=== PATIENT | male | born 1960 | race American Indian/Alaskan Native ===

== ENCOUNTER 2019-04-28 11:50 | Emergency (ER) | payer MEDICARE ==
[2019-04-28] MEDS ORDERED: ZESTRIL PO ONE (13:56)
[2019-04-28] MEDS ORDERED: NORVASC PO ONE (13:56)
--- NOTE | 2019-04-28 13:57 | Emergency Department Report ---
ED General Adult HPI - General Chief complaint: High BP Stated complaint: HBP/NEED MEDICAL CLEAR Time Seen by Provider: 04/28/19 13:54 Source: patient Mode of arrival: Ambulatory Limitations: No Limitations - History of Present Illness Initial comments: Chief complaint: "I relapsed. I need my blood pressure medicine." HPI: Mr. Ash is a very pleasant 55-year-old male with history of hypertension and cocaine abuse who has not taking his blood pressure medicine for the past week. Due to drug relapse of cocaine use, he did not take his blood pressure medicine. He is currently is receiving drug treatment at the [facility]. He was referred to the emergency department for blood pressure control. He is currently symptom-free. He denies blurry vision, chest pain, paresthesias. Medications: Lisinopril 40 mg tablets, amlodipine 10 mg tablets. -: Gradual, week(s) (1) Severity scale (0 -10): 0 Consistency: constant Improves with: none Worsens with: none Associated Symptoms: denies other symptoms Treatments Prior to Arrival: none - Related Data Previous Rx's Medication Instructions Recorded Last Taken Type Lisinopril [Zestril TAB] 40 mg PO QDAY #30 tablet 04/28/19 Unknown Rx amLODIPine [Norvasc] 10 mg PO DAILY #30 tab 04/28/19 Unknown Rx Allergies Allergy/AdvReac Type Severity Reaction Status Date / Time No Known Allergies Allergy Unverified 04/28/19 11:56 ED Review of Systems ROS: Stated complaint: HBP/NEED MEDICAL CLEAR Other details as noted in HPI Comment: All other systems reviewed and negative Constitutional: denies: fever, malaise Respiratory: denies: shortness of breath Cardiovascular: denies: chest pain Gastrointestinal: denies: abdominal pain Neurological: denies: headache ED Past Medical Hx - Past Medical History Previous Medical History?: Yes Hx Hypertension: Yes Hx Arthritis: Yes - Surgical History Past Surgical History?: No - Social History Smoking Status: Current Every Day Smoker Substance Use Type: None - Medications Home Medications: Home Medications Medication Instructions Recorded Confirmed Last Taken Type Lisinopril [Zestril TAB] 40 mg PO QDAY #30 tablet 04/28/19 Unknown Rx amLODIPine [Norvasc] 10 mg PO DAILY #30 tab 04/28/19 Unknown Rx ED Physical Exam - General Limitations: No Limitations General appearance: alert, in no apparent distress - Head Head exam: Present: atraumatic, normocephalic - Eye Eye exam: Present: normal appearance - ENT ENT exam: Present: mucous membranes moist - Neck Neck exam: Present: normal inspection, full ROM - Respiratory Respiratory exam: Present: normal lung sounds bilaterally. Absent: respiratory distress, wheezes, rales, rhonchi - Cardiovascular Cardiovascular Exam: Present: regular rate, normal rhythm, normal heart sounds. Absent: systolic murmur, diastolic murmur, rubs, gallop - GI/Abdominal GI/Abdominal exam: Present: soft, normal bowel sounds. Absent: distended, tenderness, guarding, rebound - Rectal Rectal exam: Present: deferred - Extremities Exam Extremities exam: Present: normal inspection - Back Exam Back exam: Present: normal inspection - Neurological Exam Neurological exam: Present: alert, oriented X3, normal gait - Psychiatric Psychiatric exam: Present: normal affect, normal mood - Skin Skin exam: Present: warm, dry, intact, normal color. Absent: rash ED Course Vital Signs 04/28/19 12:17 Temperature 98.2 F Pulse Rate 60 Respiratory 18 Rate Blood Pressure 170/109 O2 Sat by Pulse 98 Oximetry ED Medical Decision Making - Medical Decision Making Mr. Martinez presents with asymptomatic hypertensive urgency. Prescribed lisinopril amlodipine. Doses of these medications provided in the emergency department. Critical care attestation.: If time is entered above; I have spent that time in minutes in the direct care of this critically ill patient, excluding procedure time. ED Disposition Clinical Impression: Asymptomatic hypertensive urgency Disposition: DC-01 TO HOME OR SELFCARE Is pt being admited?: No Does the pt Need Aspirin: No Condition: Stable Instructions: Hypertension (ED) Prescriptions: amLODIPine [Norvasc] 10 mg PO DAILY #30 tab Lisinopril [Zestril TAB] 40 mg PO QDAY #30 tablet Referrals: PRIMARY CARE, [Referring] - 7-10 days
[2019-04-28 14:48] VITALS: BP 182/97
== END 2019-04-28 14:46 | disposition home or self-care (01) ==
LOC: EDSEX → ED 11:50
DX: I16.0 Hypertensive urgency (principal); I10 Essential (primary) hypertension; F17.200 Nicotine dependence, unspecified, uncomplicated; M19.90 Unspecified osteoarthritis, unspecified site; F14.10 Cocaine abuse, uncomplicated; Z79.899 Other long term (current) drug therapy
CPT/HCPCS: 99282

== ENCOUNTER 2019-06-16 15:33 | Emergency (ER) | payer MEDICARE ==
--- NOTE | 2019-06-16 16:26 | Event Note ---
ED Screening Note Date of service: 06/16/19 ED Screening Note: This initial assessment/diagnostic orders/clinical plan/treatment(s) is/are subject to change based on patients health status, clinical progression and re- assessment by fellow clinical providers in the ED. Further treatment and workup at subsequent clinical providers discretion. Patient/guardian urged not to elope from the ED as their condition may be serious if not clinically assessed and managed. Initial orders include: 59yo BM states that he does cocaine and alcohol. He states is unaware of where he is, how he got here and he hears voices that tell him to hurt others.
[2019-06-16 16:53] LABS: Bilirubin,Urine NEG (Negative); Blood,Urine MOD (Negative); Color,Urine Yellow (Yellow); Protein,Urine <15 mg/dL mg/dL (Negative); Urobilinogen,Urine < 2.0 mg/dL (<2.0)
[2019-06-16 17:04] LABS: Amphetamine Screen,Urine PRESUMPTIVE NEGATIVE; Benzodiazepines Screen,Urine PRESUMPTIVE NEGATIVE; Methadone Screen,Urine PRESUMPTIVE NEGATIVE; Opiate Screen,Urine PRESUMPTIVE NEGATIVE
[2019-06-16 17:13] LABS: Basophils # (Auto) 0.1 K/mm3 (0.0-0.1); Basophils % (Auto) 0.6 % (0.0-1.8); Eosinophils % (Auto) 0.2 % (0.0-4.3); Hematocrit 43.9 % (35.5-45.6); Hemoglobin 14.5 gm/dl (11.8-15.2); Lymphocytes # (Auto) 2.6 K/mm3 (1.2-5.4); Lymphocytes % (Auto) 22.4 % (13.4-35.0); Mean Corpuscular HGB Conc 33 % (32-34); Mean Corpuscular Volume 88 fl (84-94); Monocytes # (Auto) 0.9 K/mm3 (0.0-0.8); Monocytes % (Auto) 7.7 % (0.0-7.3); Platelet Count 260 K/mm3 (140-440); Red Blood Count 5.01 M/mm3 (3.65-5.03); Red Cell Distribution Width 13.9 % (13.2-15.2)
[2019-06-16 17:17] LABS: Cannabinoid Screen,Urine PRESUMPTIVE POSITIVE; Cocaine Screen,Urine PRESUMPTIVE POSITIVE
[2019-06-16 17:28] LABS: BUN/Creatinine Ratio 16; Blood Urea Nitrogen 14 mg/dL (9-20); Calcium 9.8 mg/dL (8.4-10.2); Hemolysis Index 10
--- NOTE | 2019-06-16 20:52 | Emergency Department Report ---
<CARLEEN WARREN - Last Filed: 06/17/19 03:59> ED General Adult HPI - General Chief complaint: Medical Clearance Stated complaint: SUBSTANCE ABUSE Time Seen by Provider: 06/16/19 20:05 Source: patient Mode of arrival: Wheelchair Limitations: No Limitations - History of Present Illness Initial comments: Patient is a poor historian. When asked why patient presents to the emergency room he states "I dont know". He states that he came by ambulance. He states he does not know who called the ambulance. He states that he has been at [facility] for one day for drug and alcohol abuse. He states he has suicidal ideations but does not have a plan. When asked if he has homicidal ideations he states "I'm not sure." He states that he is having visual hallucinations and feels like things are "crawling on him." He states that he is having auditory hallucinations and the voices are telling him to "harm himself." He has a past medical history of hypertension. He denies any allergies medications. He states he is a daily smoker half a pack per day. He states he is a daily drinker. He endorses cocaine, marijuana, Xanax use. Severity scale (0 -10): 0 - Related Data Previous Rx's Medication Instructions Recorded Last Taken Type Lisinopril [Zestril TAB] 40 mg PO QDAY #30 tablet 04/28/19 Unknown Rx amLODIPine 10 mg PO DAILY #30 tab 04/28/19 Unknown Rx Allergies Allergy/AdvReac Type Severity Reaction Status Date / Time No Known Allergies Allergy Verified 06/17/19 10:20 ED Past Medical Hx - Past Medical History Previous Medical History?: Yes Hx Hypertension: Yes Hx Arthritis: Yes - Surgical History Past Surgical History?: No - Social History Smoking Status: Current Every Day Smoker Substance Use Type: Alcohol, Cocaine - Medications Home Medications: Home Medications Medication Instructions Recorded Confirmed Last Taken Type Lisinopril [Zestril TAB] 40 mg PO QDAY #30 tablet 04/28/19 06/17/19 Unknown Rx amLODIPine 10 mg PO DAILY #30 tab 04/28/19 06/17/19 Unknown Rx ED Physical Exam - General Limitations: No Limitations General appearance: alert, in no apparent distress - Head Head exam: Present: atraumatic, normocephalic - Eye Eye exam: Present: normal appearance - ENT ENT exam: Present: mucous membranes moist - Respiratory Respiratory exam: Present: normal lung sounds bilaterally. Absent: respiratory distress, wheezes, rales, rhonchi, stridor, chest wall tenderness, accessory muscle use, decreased breath sounds, prolonged expiratory - Cardiovascular Cardiovascular Exam: Present: regular rate, normal rhythm, normal heart sounds. Absent: systolic murmur, diastolic murmur, rubs, gallop - Neurological Exam Neurological exam: Present: alert, other (pt is able to state his name, the month and day of his , and is able to say this is a hospital but the name of the hospital) - Psychiatric Psychiatric exam: Present: suicidal ideation - Skin Skin exam: Present: warm, dry, intact ED Medical Decision Making - Lab Data Result diagrams: 06/16/19 16:53 06/16/19 16:53 Labs 06/16/19 06/16/19 06/16/19 16:39 16:39 16:53 WBC RBC Hgb Hct MCV MCH MCHC RDW Plt Count Lymph % (Auto) [place] % (Auto) Eos % (Auto) Baso % (Auto) Lymph # [place] # Eos # Baso # Seg Neutrophils % Seg Neutrophils # Sodium Potassium Chloride Carbon Dioxide Anion Gap BUN Creatinine Estimated GFR BUN/Creatinine Ratio Glucose Calcium Total Bilirubin Direct Bilirubin Indirect Bilirubin AST ALT Alkaline Phosphatase Total Creatine Kinase Total Protein Albumin Albumin/Globulin Ratio Urine Color Yellow Urine Turbidity Clear Urine pH 6.0 Ur Specific [place] 1.010 Urine Protein <15 mg/dl Urine Glucose (UA) Neg Urine Ketones Tr Urine Blood Mod Urine Nitrite Neg Urine Bilirubin Neg Urine Urobilinogen < 2.0 Ur Leukocyte Esterase Neg Urine WBC (Auto) 2.0 Urine RBC (Auto) 3.0 Salicylates < 0.3 L Urine Opiates Screen Presumptive negative Urine Methadone Screen Presumptive negative Acetaminophen Ur Barbiturates Screen Presumptive negative Ur Phencyclidine Scrn Presumptive negative Ur Amphetamines Screen Presumptive negative U Benzodiazepines Scrn Presumptive negative Urine Cocaine Screen Presumptive positive U Marijuana (THC) Screen Presumptive positive Drugs of Abuse Note Disclamer Plasma/Serum Alcohol 06/16/19 06/16/19 06/16/19 16:53 16:53 16:53 WBC RBC Hgb Hct MCV MCH MCHC RDW Plt Count Lymph % (Auto) [place] % (Auto) Eos % (Auto) Baso % (Auto) Lymph # [place] # Eos # Baso # Seg Neutrophils % Seg Neutrophils # Sodium 137 Potassium 3.9 Chloride 98.7 Carbon Dioxide 22 Anion Gap 20 BUN 14 Creatinine 0.9 Estimated GFR > 60 BUN/Creatinine Ratio 16 Glucose 98 Calcium 9.8 Total Bilirubin Direct Bilirubin Indirect Bilirubin AST ALT Alkaline Phosphatase Total Creatine Kinase Total Protein Albumin Albumin/Globulin Ratio Urine Color Urine Turbidity Urine pH Ur Specific [place] Urine Protein Urine Glucose (UA) Urine Ketones Urine Blood Urine Nitrite Urine Bilirubin Urine Urobilinogen Ur Leukocyte Esterase Urine WBC (Auto) Urine RBC (Auto) Salicylates Urine Opiates Screen Urine Methadone Screen Acetaminophen < 5.0 L Ur Barbiturates Screen Ur Phencyclidine Scrn Ur Amphetamines Screen U Benzodiazepines Scrn Urine Cocaine Screen U Marijuana (THC) Screen Drugs of Abuse Note Plasma/Serum Alcohol < 0.01 06/16/19 06/16/19 06/16/19 16:53 16:53 Unknown WBC 11.6 H RBC 5.01 Hgb 14.5 Hct 43.9 MCV 88 MCH 29 MCHC 33 RDW 13.9 Plt Count 260 Lymph % (Auto) 22.4 [place] % (Auto) 7.7 H Eos % (Auto) 0.2 Baso % (Auto) 0.6 Lymph # 2.6 [place] # 0.9 H Eos # 0.0 Baso # 0.1 Seg Neutrophils % 69.1 Seg Neutrophils # 8.0 H Sodium Potassium Chloride Carbon Dioxide Anion Gap BUN Creatinine Estimated GFR BUN/Creatinine Ratio Glucose Calcium Total Bilirubin 0.50 Direct Bilirubin < 0.2 Indirect Bilirubin 0.3 AST 63 H ALT 28 Alkaline Phosphatase 88 Total Creatine Kinase 2729 H Total Protein 8.2 Albumin 4.5 Albumin/Globulin Ratio 1.2 Urine Color Urine Turbidity Urine pH Ur Specific [place] Urine Protein Urine Glucose (UA) Urine Ketones Urine Blood Urine Nitrite Urine Bilirubin Urine Urobilinogen Ur Leukocyte Esterase Urine WBC (Auto) Urine RBC (Auto) Salicylates Urine Opiates Screen Urine Methadone Screen Acetaminophen Ur Barbiturates Screen Ur Phencyclidine Scrn Ur Amphetamines Screen U Benzodiazepines Scrn Urine Cocaine Screen U Marijuana (THC) Screen Drugs of Abuse Note Plasma/Serum Alcohol - Radiology Data Radiology results: report reviewed CT head/brain wo con INDICATION: Altered mental status. TECHNIQUE: Routine CT head without contrast. All CT scans at this location are performed using CT dose reduction for ALARA by means of automated exposure control. COMPARISON: None. FINDINGS: BRAIN / INTRACRANIAL CONTENTS: No acute hemorrhage, mass effect, midline shift, or hydrocephalus. No appreciable acute large territorial or lacunar infarct. No chronic infarct or focal atrophy. Normal brain volume and ventricular/sulcal size for age. ORBITS: No significant abnormality of visualized orbits. SINUSES / MASTOIDS: No significant abnormality of visualized sinuses and mastoid air cells. ADDITIONAL FINDINGS: None. IMPRESSION: 1. No acute intracranial abnormality. Signer Name: Danilo Talamantes MD Signed: 06/16/2019 9:59 PM Workstation Name: [id number] - Medical Decision Making Patient is a poor historian. When asked why patient presents to the emergency room he states "I dont know". He states that he came by ambulance. He states he does not know who called the ambulance. He states that he has been at [facility] for one day for drug and alcohol abuse. He states he has suicidal ideations but does not have a plan. When asked if he has homicidal ideations he states "I'm not sure." He states that he is having visual hallucinations and feels like things are "crawling on him." He states that he is having auditory hallucinations and the voices are telling him to "harm himself." He has a past medical history of hypertension. He denies any allergies medications. He states he is a daily smoker half a pack per day. He states he is a daily d cherrie. He endorses cocaine, marijuana, Xanax use. vitals are stable. labs significant for elevated CK and mildly elevated AST. pt given 2L of NS. UA with no proteinuria. kidney function is normal. no clinical signs of rhabdomyolysis. UDS is positive for marijuana and cocaine. CT head 1. No acute intracranial abnormality. Patient please on 1013 due to suicidal ideations and hallucinations Stat mental health consult placed ED hold orders placed At this time patient does not have a medical emergency preventing mental health evaluation and/or transfer to a psychiatric facility as deemed appropriate by mental health personnel ED Disposition Clinical Impression: Suicidal ideation, Substance abuse Disposition: DC/TX-65 PSY HOSP/PSY UNIT Condition: Stable Instructions: Polysubstance Abuse (ED), Suicide Prevention for Adults (ED) Referrals: PRIMARY CAREMD [Primary Care Provider] - 3-5 Days <MAGDY BERMEO - Last Filed: 06/19/19 12:45> ED General Adult HPI - History of Present Illness Initial comments: Patient has been evaluated by nurse practitioner for mental health. Practitioner recommends that patient can be discharged to [facility]. It appears from review of chart the patient had come from a [facility]. ED Review of Systems ROS: Stated complaint: SUBSTANCE ABUSE Other details as noted in HPI ED Course Vital Signs 06/16/19 06/16/19 06/17/19 16:23 20:07 02:00 Temperature 98.8 F 98.2 F 98.4 F Pulse Rate 92 H 83 67 Respiratory 18 16 16 Rate Blood Pressure 140/91 Blood Pressure 134/68 143/95 [Left] O2 Sat by Pulse 98 94 97 Oximetry 06/17/19 06/17/19 06/17/19 08:36 15:22 20:15 Temperature 98.8 F 98.6 F Pulse Rate 66 74 Respiratory 16 18 18 Rate Blood Pressure Blood Pressure 129/81 136/89 [Left] O2 Sat by Pulse 95 96 Oximetry 06/17/19 06/18/19 06/18/19 20:32 02:16 08:29 Temperature 99.0 F 98.4 F Pulse Rate 75 72 63 Respiratory 18 18 20 Rate Blood Pressure Blood Pressure 151/90 134/74 163/91 [Left] O2 Sat by Pulse 98 97 97 Oximetry 06/18/19 06/18/19 06/19/19 13:25 18:34 01:30 Temperature 98.7 F 98.6 F Pulse Rate 65 65 Respiratory 20 18 Rate Blood Pressure 172/92 Blood Pressure 172/92 141/90 [Left] O2 Sat by Pulse 96 97 Oximetry 06/19/19 06/19/19 07:00 11:00 Temperature 98.5 F Pulse Rate 60 60 Respiratory 18 Rate Blood Pressure 150/98 Blood Pressure 150/98 [Left] O2 Sat by Pulse 99 Oximetry ED Medical Decision Making - Lab Data Result diagrams: 06/16/19 16:53 06/16/19 16:53 Critical care attestation.: If time is entered above; I have spent that time in minutes in the direct care of this critically ill patient, excluding procedure time. ED Disposition Is pt being admited?: No Does the pt Need Aspirin: No
[2019-06-16 21:06] LABS: Alanine Aminotransferase 28 units/L (7-56); Albumin 4.5 g/dL (3.9-5)
[2019-06-16 21:14] LABS: Bilirubin,Direct < 0.2 mg/dL (0-0.2)
[2019-06-16] MEDS ORDERED: SODIUM CHLORIDE 0.9% 1000 ML 1,000 ML IV ONE ×2 (21:22)
--- NOTE | 2019-06-16 22:04 | Cat Scan Report ---
CT head/brain wo con INDICATION: Altered mental status. TECHNIQUE: Routine CT head without contrast. All CT scans at this location are performed using CT dos e reduction for ALARA by means of automated exposure control. COMPARISON: None. FINDINGS: BRAIN / INTRACRANIAL CONTENTS: No acute hemorrhage, mass effect, midline shift, or hydrocephalus. No appreciable acute large territorial or lacunar infarct. No chronic infarct or focal atrophy. Normal b rain volume and ventricular/sulcal size for age. ORBITS: No significant abnormality of visualized orbits. SINUSES / MASTOIDS: No significant abnormality of visualized sinuses and mastoid air cells. ADDITIONAL FINDINGS: None. IMPRESSION: 1. No acute intracranial abnormality. Signer Name: Danilo Talamantes MD Signed: 06/16/2019 9:59 PM Workstation Name: [id number]
--- NOTE | 2019-06-17 10:04 | Consultation ---
History of Present Illness - Reason for Consult Consult date: 06/17/19 Reason for consult: Mental Health Evaluation Requesting physician: CARLEEN WARREN - Chief Complaint Chief complaint: "I don't know if I want to kill myself" - History of Present Psychiatric Illness 59 y.o. AA male who presented to the ER for SI's and substance abuse. Today the patient was calm during the assessment. He stated that he was a client at [facility], but relapsed on "drugs" and came to the ER. He stated that he is tired of using "drugs" and don't know what to do with himself. He stated that he did endorse SI's yesterday, but would not confirm or deny SI's currently. He stated that he feel "useless/hopeless" about his substance abuse. He denies any prior suicide attempts when asked. He is adamant that he has no direction with his life. He denies HI's and AVH's. He denies erratic sleep and a poor appetite. He acknowledged alcohol consumption (etoh) socially. He stated that his recreational drug use has increased. Medications and Allergies Allergies Allergy/AdvReac Type Severity Reaction Status Date / Time No Known Allergies Allergy Verified 06/17/19 10:20 Home Medications Medication Instructions Recorded Confirmed Last Taken Type Lisinopril [Zestril TAB] 40 mg PO QDAY #30 tablet 04/28/19 06/17/19 Unknown Rx amLODIPine 10 mg PO DAILY #30 tab 04/28/19 06/17/19 Unknown Rx Past psychiatric history - Past Medical History Past Medical History: No medical history Past Surgical History: No surgical history - past Psychiatric treatment and history psychiatric treatment history: Hx of substance abuse. Denies a fam psy hx. - Social History Social history: other (Homeless) Mental Status Exam - Vital signs Last Vital Signs Temp 98.4 F 06/17/19 02:00 Pulse 67 06/17/19 02:00 Resp 16 06/17/19 02:00 BP 143/95 06/17/19 02:00 Pulse Ox 97 06/17/19 02:00 - Exam Narrative exam: MSE: Appearance: in hospital attire Behavior: poor eye contact Speech: regular rate and tone Mood: "down" Affect: flat Thought Process: circumstantial Thought Content: denies HI's and AVH's Motor Activity: lying in bed Cognition: A/O x3 Insight: variable Judgment: poor Results Result Diagrams: 06/16/19 16:53 06/16/19 16:53 Abnormal lab results 06/16/19 06/16/19 06/16/19 Range/Units 16:53 16:53 16:53 WBC 11.6 H (4.5-11.0) K/mm3 [place] % (Auto) 7.7 H (0.0-7.3) % [place] # 0.9 H (0.0-0.8) K/mm3 Seg Neutrophils # 8.0 H (1.8-7.7) K/mm3 AST (5-40) units/L Total Creatine Kinase (55-170) units/L Salicylates < 0.3 L (2.8-20.0) mg/dL Acetaminophen < 5.0 L (10.0-30.0) ug/mL 06/16/19 06/16/19 Range/Units 16:53 Unknown WBC (4.5-11.0) K/mm3 [place] % (Auto) (0.0-7.3) % [place] # (0.0-0.8) K/mm3 Seg Neutrophils # (1.8-7.7) K/mm3 AST 63 H (5-40) units/L Total Creatine Kinase 2729 H (55-170) units/L Salicylates (2.8-20.0) mg/dL Acetaminophen (10.0-30.0) ug/mL All other labs normal. Assessment and Plan Assessment and plan: Impression: MDD. Substance Use DO (cocaine). Cannabis Use DO. Today the patient was calm during the assessment. CK 2729. DDx: Substancel Induced Mood DO Recommendation/Plan: Continue 1013 and start Zoloft 50 mg PO daily for depression. Discussed possible sucidality/medication induced adam with the deuce ent reference [place], he verbalized understanding. Dispo: The patient will be referred to inpatient psy services. Staffed with Dr Ava Escobedo.
[2019-06-17] MEDS: SERTRALINE 50 MG TAB PO SCH (13:42)
--- NOTE | 2019-06-18 09:39 | Progress Note ---
Subjective - Reason for Consult Consult date: 06/18/19 Reason for consult: Psychiatry Follow-up - Chief Complaint Chief complaint: "I have to make better decisions" 59 y.o. AA male who presented to the ER for SI's and substance abuse. Today the patient was calm during the assessment. He stated that he need all the help he can get from the mental health facility. He stated he must do better with his decision making reference his life. He denies SI/HI's and AVH's. No indication of side effects from his medication. Mental Status Exam - Vital signs Last Vital Signs Temp 99.0 F 06/18/19 02:16 Pulse 72 06/18/19 02:16 Resp 18 06/18/19 02:16 BP 134/74 06/18/19 02:16 Pulse Ox 97 06/18/19 02:16 - Exam Narrative exam: MSE: Appearance: in hospital attire Behavior: regular eye contact Speech: regular rate and tone Mood: "okay" Affect: flat Thought Process: circumstantial Thought Content: denies HI's and AVH's Motor Activity: lying in bed Cognition: A/O x3 Insight: variable Judgment: variable Assessment and Plan Impression: MDD. Substance Use DO (cocaine). Cannabis Use DO. Today the patient was calm during the assessment. CK 1337, trending down. DDx: Substancel Induced Mood DO Recommendation/Plan: Continue 1013 and Zoloft 50 mg PO daily for depression. Discussed possible sucidality/medication induced adam with the patient reference [place], he verbalized understanding. Dispo: The patient was accepted at [facility] for inpatient psy services. Will staff with Dr Ava Escobedo.
[2019-06-18] MEDS: SERTRALINE 50 MG TAB PO SCH (11:07)
[2019-06-18] MEDS ORDERED: amLODIPine 10 MG TAB ONE (18:21)
[2019-06-18] MEDS ORDERED: LISINOPRIL 20 MG TAB ONE (18:21)
[2019-06-18] MEDS ORDERED: LISINOPRIL 20 MG TAB PO ONE (18:32)
[2019-06-18] MEDS ORDERED: amLODIPine 5 MG TAB PO ONE (18:33)
--- NOTE | 2019-06-19 08:27 | Progress Note ---
Subjective - Reason for Consult Consult date: 06/19/19 Reason for consult: Psychiatry Follow-up - Chief Complaint Chief complaint: "Hello" 59 y.o. AA male who presented to the ER for SI's and substance abuse. Today the patient was calm and cooperative during the assessment. He stated that he have done lots of reflection about his life. He is adamant that he isn't suicidal at this time and look forward to rehab/psy services once discharged. He denies S I/HI's and AVH's. He denies any side effects from his medication. Mental Status Exam - Vital signs Last Vital Signs Temp 98.6 F 06/19/19 01:30 Pulse 65 06/19/19 01:30 Resp 18 06/19/19 01:30 BP 141/90 06/19/19 01:30 Pulse Ox 97 06/19/19 01:30 - Exam Narrative exam: MSE: Appearance: calm, cooperative Behavior: regular eye contact Speech: regular rate and tone Mood: "better" Affect: congruent to mood Thought Process: linear Thought Content: denies SI/HI's and AVH's Motor Activity: lying in bed Cognition: A/O x3 Insight: fair Judgment: fair Assessment and Plan Impression: MDD. Substance Use DO (cocaine). Cannabis Use DO. Today the patient was calm during the assessment. CK 1337, trending down. DDx: Substancel Induced Mood DO Recommendation/Plan: Rescind 1013. Continue Zoloft 50 mg PO daily for depression. Discussed possible sucidality/medication induced adam with the patient reference [place], he verbalized understanding. Dispo: The patient will be referred to [facility] (voluntary). Will staff with Dr Ava Escobedo.
[2019-06-19 08:32] VITALS: BP 150/98
[2019-06-19] MEDS ORDERED: LISINOPRIL 20 MG TAB PO ONE (10:00)
[2019-06-19] MEDS ORDERED: amLODIPine 10 MG TAB PO ONE (10:00)
[2019-06-19] MEDS: SERTRALINE 50 MG TAB PO SCH (11:00)
== END 2019-06-19 13:35 ==
LOC: EEVIPCON 15:33 → ED 15:33
DX: F32.9 Major depressive disorder, single episode, unspecified (principal); I10 Essential (primary) hypertension; M19.90 Unspecified osteoarthritis, unspecified site; F17.200 Nicotine dependence, unspecified, uncomplicated; F14.10 Cocaine abuse, uncomplicated; F12.10 Cannabis abuse, uncomplicated
CPT/HCPCS: 36415; 70450; 80048; 80076; 80307; 81001; 82550; 85025; 99285; J7030; 80320; G0480

== ENCOUNTER 2020-08-12 09:37 | Emergency (ER) | payer MEDICARE ==
[2020-08-12 10:14] VITALS: BP 150/93
--- NOTE | 2020-08-12 10:15 | Emergency Department Report ---
Chief Complaint: Medical Clearance Stated Complaint: REQUESTING A RX FOR CPAP MACHINE Time Seen by Provider: 08/12/20 09:46 - HPI History of Present Illness: This is a 61-year-old male nontoxic, well nourished in appearance, no acute signs of distress presents to the ED for a note to his insurance company that he lost his CPAP machine. Patient otherwise denies any symptoms. Denies any complaints. Denies any chest pain, shortness of breath, fever, chills, nausea, vomiting, headache or stiff neck. Patient denies any allergies. - Exam Vital Signs: Vital Signs 08/12/20 09:43 Temperature 97.6 F Pulse Rate 73 Respiratory 20 Rate Blood Pressure 150/93 O2 Sat by Pulse 97 Oximetry Physical Exam: My physical exam GENERAL: The patient is a well-developed, well-nourished in no apparent distress. Patient is alert and acting appropriately for age. Alert and oriented 3, no apparent distress, normal gait, atraumatic. LUNGS: Respiratory rate within normal limits. HEART: Regular rate within normal limits. PSYCHIATRIC: Normal affect with no suicidal or homicidal ideations. MSE screening note: Focused history and physical exam performed. Due to findings the following was ordered: ED Medical Decision Making - Medical Decision Making Patient was given referrals to see a primary care doctor that will be able to assist him with a CPAP. Vital signs are stable. At time of discharge, the patient does not seem toxic or ill in appearance. No acute signs of distress noted. Patient agrees to discharge treatment plan of care. No further questions noted by the patient. ED Disposition for MSE Clinical Impression: Referral needed Disposition: MED SCREENING EXAM-LEFT Is pt being admited?: No Does the pt Need Aspirin: No Condition: Stable Additional Instructions: Follow-up with the medical referrals that you were provided to the emergency room today or if symptoms worsen and continue return to emergency room as soon as possible. Referrals: VALDEZ GRESHAM MD [Primary Care Provider] - 3-5 Days JOHANNA GARCIA MD [Staff Physician] - 3-5 Days Time of Disposition: 10:15
== END 2020-08-12 10:28 | disposition left against medical advice (07) ==
LOC: ED 09:37
DX: Z53.21 Procedure and treatment not carried out due to patient leaving prior to being seen by health care provider (principal)

== ENCOUNTER 2021-09-13 04:28 | Emergency (ER) | payer MEDICARE ==
[2021-09-13] MEDS ORDERED: LORazepam 2 MG/ML VIAL IM PRN (05:24)
[2021-09-13] MEDS ORDERED: HALOPERIDOL LACTATE 5 MG/1 ML INJ IM PRN (05:24)
--- NOTE | 2021-09-13 05:25 | Emergency Department Report ---
ED General Adult HPI - General Chief complaint: Psych Stated complaint: I am drunk and I want to kill myself PUI?: No Time Seen by Provider: 09/13/21 05:23 Source: patient, RN notes reviewed, old records reviewed Mode of arrival: Ambulatory Limitations: Other (Alcohol intoxication) - History of Present Illness Initial comments: The patient was evaluated in the emergency department for symptoms described in the history of present illness. He/she was evaluated in the context of the global COVID-19 pandemic, which necessitated consideration that the patient might be at risk for infection with the virus that causes COVID-19. Institutional protocols and algorithms that pertain to the evaluation of patients at risk for COVID-19 are in a state of rapid change based on information released by regulatory bodies including the CDC and federal and state organizations. These policies and algorithms were followed during the pat ient's care in the emergency department. Please note that these policies, procedures and recommendations changed on a rapid basis. The patient is a 61-year-old gentleman with a history of alcoholism, hypertension, and polysubstance abuse, who presents to the ER today with a complaint of homicidality suicidality hallucinations and intoxication. He denies physical pain. He denies shortness of breath. He denies urinary symptoms. He denies overdose. He denies access to guns or firearms. He reports that he took the bus here. -: Gradual Severity scale (0 -10): 2 Consistency: constant Improves with: none Worsens with: none - Related Data Previous Rx's Medication Instructions Recorded Last Taken Type amLODIPine 10 mg PO DAILY #30 tab 04/28/19 Unknown Rx lisinopriL [Zestril TAB] 40 mg PO QDAY #30 tablet 04/28/19 Unknown Rx Allergies Allergy/AdvReac Type Severity Reaction Status Date / Time No Known Allergies Allergy Verified 06/17/19 10:20 ED Review of Systems ROS: Stated complaint: MENTAL HEALTH CONCERNS/SOB Other details as noted in HPI Constitutional: denies: fever Eyes: denies: eye discharge ENT: denies: epistaxis Respiratory: denies: cough Cardiovascular: denies: chest pain Gastrointestinal: denies: abdominal pain Genitourinary: denies: dysuria Neurological: denies: weakness Psychiatric: depression, auditory hallucinations, suicidal thoughts ED Past Medical Hx - Past Medical History Hx Hypertension: Yes Hx Arthritis: Yes Hx Psychiatric Treatment: Yes (Depression) - Surgical History Past Surgical History?: No - Social History Smoking Status: Current Every Day Smoker Substance Use Type: Alcohol, Cocaine - Medications Home Medications: Home Medications Medication Instructions Recorded Confirmed Last Taken Type amLODIPine 10 mg PO DAILY #30 tab 04/28/19 06/17/19 Unknown Rx lisinopriL [Zestril TAB] 40 mg PO QDAY #30 tablet 04/28/19 06/17/19 Unknown Rx ED Physical Exam - General Limitations: Other (Intoxication) General appearance: appears intoxicated - Head Head exam: Present: atraumatic, normocephalic - Eye Eye exam: Present: normal appearance, EOMI. Absent: nystagmus - ENT ENT exam: Present: normal exam, normal orophraynx, mucous membranes moist, normal external ear exam - Neck Neck exam: Present: normal inspection, full ROM. Absent: tenderness, mening ismus - Respiratory Respiratory exam: Present: normal lung sounds bilaterally. Absent: respiratory distress, wheezes, rales, rhonchi, stridor, decreased breath sounds - Cardiovascular Cardiovascular Exam: Present: regular rate, normal rhythm, normal heart sounds. Absent: bradycardia, tachycardia, irregular rhythm, systolic murmur, diastolic murmur, rubs, gallop - GI/Abdominal GI/Abdominal exam: Present: soft. Absent: distended, tenderness, guarding, rebound, rigid, pulsatile mass - Rectal Rectal exam: Present: deferred - Extremities Exam Extremities exam: Present: normal inspection, full ROM, other (2+ pulses noted in the bilateral upper and lower extremities. There is no palpable cord. neg ative Homans sign. Muscular compartments are soft. The pelvis is stable.). Absent: pedal edema, calf tenderness - Back Exam Back exam: Present: normal inspection, full ROM. Absent: tenderness, CVA tenderness (R), CVA tenderness (L), paraspinal tenderness, vertebral tenderness - Neurological Exam Neurological exam: Present: alert, normal gait, other (No facial droop. Tongue midline. Extraocular movements intact bilaterally. Facial sensation intact to light touch in V1, V2, V3 distribution bilaterally. 5 and a 5 strength in 4 extremities. Sensation intact to light touch in 4 extremities.). Absent: motor sensory deficit - Psychiatric Psychiatric exam: Present: depressed, flat affect, suicidal ideation - Skin Skin exam: Present: warm, dry, intact, normal color. Absent: rash ED Course Vital Signs 09/13/21 04:41 Temperature 98.4 F Pulse Rate 85 Respiratory 17 Rate Blood Pressure 125/84 [Right] O2 Sat by Pulse 97 Oximetry - Reevaluation(s) Reevaluation #1: 09/13/21 05:50 Differential diagnosis, including not limited to: Substance induced mood disorder, alcohol intoxication, medical screening examination for psychiatric placement, behavioral health screening Assessment and plan: 61-year-old gentleman who was intoxicated clinically, with a complaint of suicidality hallucinations and homicidality. He is cooperative. He is not belligerent. He is placed on a 2013. Appropriate medications ordered. Holding orders initiated. Screening laboratory studies requested. Have requested psychiatric consultation and evaluation. We anticipate that this patient will likely would be cleared by the psychiatry team once he becomes clinically sober. Reassess after laboratory studies have resulted. 09/13/21 06:36 Laboratory studies reviewed and appreciated. They are unremarkable with the exception of elevated CK. This is less than 5000, his muscular compartments are soft, and renal function is acceptable/within normal limits at this time. IV fluids ordered. Elevated CK will also decrease on its own with rest and oral hydration. At this point in time, the patient does not appear to have an immediate medical contraindication to psychiatric admission, evaluation, consultation and placement. Urinalysis and urine drug screen pending, as well as Covid test. The emergency room will follow along as he provides the samples. ED Medical Decision Making - Lab Data Result diagrams: 09/13/21 05:17 09/13/21 05:17 Vital Signs 09/13/21 04:41 Temperature 98.4 F Pulse Rate 85 Respiratory 17 Rate Blood Pressure 125/84 [Right] O2 Sat by Pulse 97 Oximetry Lab Results 09/13/21 Range/Units 05:17 WBC 5.7 (4.5-11.0) K/mm3 RBC 4.71 (3.65-5.03) M/mm3 Hgb 13.5 (11.8-15.2) gm/dl Hct 40.6 (35.5-45.6) % MCV 86 (84-94) fl MCH 29 (28-32) pg MCHC 33 (32-34) % RDW 13.9 (13.2-15.2) % Plt Count 266 (140-440) K/mm3 Lymph % (Auto) 28.6 (13.4-35.0) % [place] % (Auto) 8.6 H (0.0-7.3) % Eos % (Auto) 0.6 (0.0-4.3) % Baso % (Auto) 1.1 (0.0-1.8) % Lymph # (Auto) 1.6 (1.2-5.4) K/mm3 [place] # (Auto) 0.5 (0.0-0.8) K/mm3 Eos # (Auto) 0.0 (0.0-0.4) K/mm3 Baso # (Auto) 0.1 (0.0-0.1) K/mm3 Seg Neutrophils % 61.1 (40.0-70.0) % Seg Neutrophils # 3.5 (1.8-7.7) K/mm3 Lab Results 09/13/21 09/13/21 09/13/21 Range/Units 05:17 05:17 05:17 WBC (4.5-11.0) K/mm3 RBC (3.65-5.03) M/mm3 Hgb (11.8-15.2) gm/dl Hct (35.5-45.6) % MCV (84-94) fl MCH (28-32) pg MCHC (32-34) % RDW (13.2-15.2) % Plt Count (140-440) K/mm3 Lymph % (Auto) (13.4-35.0) % [place] % (Auto) (0.0-7.3) % Eos % (Auto) (0.0-4.3) % Baso % (Auto) (0.0-1.8) % Lymph # (Auto) (1.2-5.4) K/mm3 [place] # (Auto) (0.0-0.8) K/mm3 Eos # (Auto) (0.0-0.4) K/mm3 Baso # (Auto) (0.0-0.1) K/mm3 Seg Neutrophils % (40.0-70.0) % Seg Neutrophils # (1.8-7.7) K/mm3 Sodium 145 (137-145) mmol/L Potassium 3.6 (3.6-5.0) mmol/L Chloride 102.0 (98-107) mmol/L Carbon Dioxide 28 (22-30) mmol/L Anion Gap 19 mmol/L BUN 19 (9-20) mg/dL Creatinine 1.2 (0.8-1.3) mg/dL Estimated GFR > 60 ml/min BUN/Creatinine Ratio 16 % Glucose 116 H (75-100) mg/dL Calcium 9.6 (8.4-10.2) mg/dL Magnesium (1.7-2.3) mg/dL Total Creatine Kinase (55-170) units/L Salicylates < 0.3 L (2.8-20.0) mg/dL Acetaminophen 5.0 L (10.0-30.0) ug/mL Plasma/Serum Alcohol (0-0.07) % 09/13/21 09/13/21 09/13/21 Range/Units 05:17 05:17 05:20 WBC 5.7 (4.5-11.0) K/mm3 RBC 4.71 (3.65-5.03) M/mm3 Hgb 13.5 (11.8-15.2) gm/dl Hct 40.6 (35.5-45.6) % MCV 86 (84-94) fl MCH 29 (28-32) pg MCHC 33 (32-34) % RDW 13.9 (13.2-15.2) % Plt Count 266 (140-440) K/mm3 Lymph % (Auto) 28.6 (13.4-35.0) % [place] % (Auto) 8.6 H (0.0-7.3) % Eos % (Auto) 0.6 (0.0-4.3) % Baso % (Auto) 1.1 (0.0-1.8) % Lymph # (Auto) 1.6 (1.2-5.4) K/mm3 [place] # (Auto) 0.5 (0.0-0.8) K/mm3 Eos # (Auto) 0.0 (0.0-0.4) K/mm3 Baso # (Auto) 0.1 (0.0-0.1) K/mm3 Seg Neutrophils % 61.1 (40.0-70.0) % Seg Neutrophils # 3.5 (1.8-7.7) K/mm3 Sodium (137-145) mmol/L Potassium (3.6-5.0) mmol/L Chloride (98-107) mmol/L Carbon Dioxide (22-30) mmol/L Anion Gap mmol/L BUN (9-20) mg/dL Creatinine (0.8-1.3) mg/dL Estimated GFR ml/min BUN/Creatinine Ratio % Glucose (75-100) mg/dL Calcium (8.4-10.2) mg/dL Magnesium 2.10 (1.7-2.3) mg/dL Total Creatine Kinase 3127 H (55-170) units/L Salicylates (2.8-20.0) mg/dL Acetaminophen (10.0-30.0) ug/mL Plasma/Serum Alcohol < 0.01 (0-0.07) % Critical care attestation.: If time is entered above; I have spent that time in minutes in the direct care o f this critically ill patient, excluding procedure time. ED Disposition Clinical Impression: Substance induced mood disorder, Encounter for behavioral health screening, Encounter for medical screening examination, Alcohol intoxication, Elevated CK Disposition: [address] [place] [address] Is pt being admited?: No Does the pt Need Aspirin: No Condition: Good
[2021-09-13 05:42] LABS: Basophils # (Auto) 0.1 K/mm3 (0.0-0.1); Basophils % (Auto) 1.1 % (0.0-1.8); Eosinophils % (Auto) 0.6 % (0.0-4.3); Hematocrit 40.6 % (35.5-45.6); Hemoglobin 13.5 gm/dl (11.8-15.2); Lymphocytes # (Auto) 1.6 K/mm3 (1.2-5.4); Lymphocytes % (Auto) 28.6 % (13.4-35.0); Mean Corpuscular HGB Conc 33 % (32-34); Mean Corpuscular Volume 86 fl (84-94); Monocytes # (Auto) 0.5 K/mm3 (0.0-0.8); Monocytes % (Auto) 8.6 % (0.0-7.3); Platelet Count 266 K/mm3 (140-440); Red Blood Count 4.71 M/mm3 (3.65-5.03); Red Cell Distribution Width 13.9 % (13.2-15.2)
[2021-09-13 05:56] LABS: BUN/Creatinine Ratio 16; Blood Urea Nitrogen 19 mg/dL (9-20); Calcium 9.6 mg/dL (8.4-10.2); Hemolysis Index 3
[2021-09-13] MEDS ORDERED: LACTATED RINGERS 2,000 ML IV ONE (06:35)
[2021-09-13] MEDS ORDERED: amLODIPine 10 MG TAB PO SCH (10:00)
[2021-09-13] MEDS ORDERED: LISINOPRIL 40 MG TAB PO SCH (10:00)
--- NOTE | 2021-09-13 11:24 | Event Note ---
Date: 09/13/21 vss , no events over night CL elevated will repeat 24 hours . awaiting psych assessment
--- NOTE | 2021-09-13 11:58 | Consultation ---
History of Present Illness - Reason for Consult Consult date: 09/13/21 Reason for consult: alcohol abuse, suicidal thoughts - History of Present Psychiatric Illness The patient was seen today. He is at first reluctant to cooperate. He endorses suicidal thoughts without a plan. He verbalizes crack cocaine use. The patient says he normally doesn't drink but usually binge drinks. He denies hallucinations of any kind. The patient says he has a history of bipolar and nahid or depression. He says he's been off his meds for about three months. The patient says he takes trazodone and zoloft. He verbalizes being very depressed. PAST PSYCHIATRIC HISTORY Diagnoses: Bipolar Disorder and Depression Suicide attempts or Self-harm behavior: Denies Prior psychiatric hospitalizations: Yes Substance Abuse history: crack cocaine Previous psychiatric medications tried: zoloft, trazodone Outpatient treatment: Yes PAST MEDICAL HISTORY: None reported Family Psychiatric History: None reported or documented SOCIAL HISTORY Marital Status: Single Living Arrangements: homeless Employment Status: Unemployed Access to guns/weapons: Denies Education: History of Abuse: Denies Legal History: Denies REVIEW OF SYSTEMS Constitutional: Negative for weight loss ENT: Negative for stridor Respiratory: Negative for cough or hemoptysis All other systems reviewed and are negative MENTAL STATUS EXAMINATION General Appearance and Behavior: Age appropriate,good hygiene, wearing appropriate clothes, reluctant to cooperate, poor eye contact Cooperation: Participating/engaged Psychomotor Behavior: unremarkable and within normal limits Mood: Depressed, Affect and affective range: sad Thought Process: Fluent/Logical Thought Content: Hopelessnes Speech: Normal volume, Regular rate and rhythm Suicidal Ideation: Suicidal Homicidal Ideation: Denies Impulse Control: Limited Insight and Judgment: Normal insight and judgment Memory: Normal Attention: Normal, Orientation: Alert, oriented Assessment Bipolar Disorder Cocaine Use Disorder Treatment Plan 1013 Zoloft 25mg po daily Trazodone 50mg po qhs Risks, benefits and alternatives of medications discussed with the patient, questions answered and consent obtained from patient. PSYCHOTHERAPY: Supportive psychotherapy provided MEDICAL: Per primary team DELIRIUM PRECAUTIONS: Please re-orient patient frequently, keep lights on during the day, and minimize benzodiazepines and opiates as these medications could worsen patient's confusion. 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 Please contact with any questions and/or concerns. Medications and Allergies Allergies Allergy/AdvReac Type Severity Reaction Status Date / Time No Known Allergies Allergy Verified 06/17/19 10:20 Home Medications Medication Instructions Recorded Confirmed Last Taken Type amLODIPine 10 mg PO DAILY #30 tab 04/28/19 06/17/19 Unknown Rx lisinopriL [Zestril TAB] 40 mg PO QDAY #30 tablet 04/28/19 06/17/19 Unknown Rx Active Meds: Active Medications Amlodipine Besylate (Amlodipine 10 Mg Tab) 10 mg PO DAILY [facility] Last Admin: 09/13/21 10:40 Dose: Not Given Haloperidol Lactate (Haloperidol Lactate 5 Mg/1 Ml Inj) 5 mg IM Q6HR PRN PRN Reason: Agitation Lisinopril (Lisinopril 40 Mg Tab) 40 mg PO QDAY [facility] Last Admin: 09/13/21 10:40 Dose: Not Given Lorazepam (Lorazepam 2 Mg/Ml Vial) 2 mg IM Q4HR PRN PRN Reason: Agitation Mental Status Exam - Vital signs Last Vital Signs Temp 98.4 F 09/13/21 04:41 Pulse 85 09/13/21 04:41 Resp 17 09/13/21 04:41 BP 125/84 09/13/21 04:41 Pulse Ox 97 09/13/21 04:41 Results Result Diagrams: 09/13/21 05:17 09/13/21 05:17 Abnormal lab results 09/13/21 09/13/21 09/13/21 Range/Units 05:17 05:17 05:17 [place] % (Auto) (0.0-7.3) % Glucose 116 H (75-100) mg/dL Total Creatine Kinase (55-170) units/L Salicylates < 0.3 L (2.8-20.0) mg/dL Acetaminophen 5.0 L (10.0-30.0) ug/mL 09/13/21 09/13/21 Range/Units 05:17 05:20 [place] % (Auto) 8.6 H (0.0-7.3) % Glucose (75-100) mg/dL Total Creatine Kinase 3127 H (55-170) units/L Salicylates (2.8-20.0) mg/dL Acetaminophen (10.0-30.0) ug/mL All other labs normal.
[2021-09-13] MEDS ORDERED: SERTRALINE 25 MG TAB PO SCH (12:00)
[2021-09-13 12:23] LABS: Bilirubin,Urine NEG (Negative); Blood,Urine SM (Negative); Color,Urine Yellow (Yellow); Mucus,Urine FEW /HPF; Protein,Urine <15 mg/dL mg/dL (Negative)
[2021-09-13 12:24] LABS: Amphetamine Screen,Urine PRESUMPTIVE NEGATIVE; Benzodiazepines Screen,Urine PRESUMPTIVE NEGATIVE; Cannabinoid Screen,Urine PRESUMPTIVE POSITIVE; Cocaine Screen,Urine PRESUMPTIVE POSITIVE; Methadone Screen,Urine PRESUMPTIVE NEGATIVE; Opiate Screen,Urine PRESUMPTIVE NEGATIVE
[2021-09-13 12:29] VITALS: BP 143/81
[2021-09-13] MEDS ORDERED: traZODone 50 MG TAB PO SCH (22:00)
== END 2021-09-13 18:37 ==
LOC: ED 04:28
DX: F19.24 Other psychoactive substance dependence with psychoactive substance-induced mood disorder (principal); Z13.30 Encounter for screening examination for mental health and behavioral disorders, unspecified; Z00.00 Encounter for general adult medical examination without abnormal findings; F10.129 Alcohol abuse with intoxication, unspecified; R74.8 Abnormal levels of other serum enzymes; Z20.822 Contact with and (suspected) exposure to COVID-19
CPT/HCPCS: 36415; 80048; 80307; 81001; 82550; 83735; 85025; 99285; U0003; 80320; G0480